=== PATIENT | male | born 1955 | race Caucasian/White ===

== ENCOUNTER 2016-05-10 07:36 | Emergency (ER) | payer BC ==
[~2016-05-10] VITALS: Ht 188 cm; Wt 121.6 kg
[2016-05-10] MEDS ORDERED: MORPHINE SULFATE INJ 2 MG/ML DISP.SYRIN ONE ×2 (07:56→09:36)
[2016-05-10] MEDS ORDERED: IV SET PRIMARY 1 EA INFUS.SET MC ONE (07:56)
[2016-05-10] MEDS ORDERED: IV NS 0.9% 1,000 ML ONE (07:56)
[2016-05-10] MEDS ORDERED: MORPHINE SULFATE INJ 4 MG/ML DISP.SYRIN ONE ×2 (07:56→09:36)
[2016-05-10] MEDS ORDERED: ONDANSETRON HCL/PF 4 MG/2 ML VIAL ONE (07:56)
[2016-05-10] MEDS ORDERED: IV NS 0.9% 1,000 ML BAG IV ONE (08:00)
[2016-05-10] MEDS ORDERED: ONDANSETRON HCL/PF 4 MG/2 ML VIAL IVP ONE (08:00)
[2016-05-10] MEDS ORDERED: MORPHINE SULFATE INJ 2 MG/ML DISP.SYRIN IV ONE ×2 (08:00→10:00)
[2016-05-10] MEDS ORDERED: HYDR-552 PO (08:03)
[2016-05-10] MEDS ORDERED: TRAM50TA2 PO (08:03)
[2016-05-10] MEDS ORDERED: LEVE500T6 PO (08:03)
[2016-05-10] MEDS ORDERED: OXYC5CAP3 PO (08:03)
[2016-05-10 08:20] LABS: BASOPHILS % (AUTO) 0.2 % (0.0-2.0); DIFF TOTAL % 100 %; EOSINOPHILS # (AUTO) 0.3 /CMM (0.0-0.7); EOSINOPHILS % (AUTO) 2.7 % (0.0-6.0); HEMATOCRIT 45 % (39-51); HEMOGLOBIN 14.9 g/dL (13.5-17.5); MEAN CORPUSCULAR HEMOGLOBIN 28 PG (26.0-33.0); MEAN CORPUSCULAR HGB CONC 34 g/dl (31.0-36.0); MEAN CORPUSCULAR VOLUME 84 fL (80-96); MONOCYTES # (AUTO) 0.6 /CMM (0.1-1.30); MONOCYTES % (AUTO) 4.9 % (2.0-12.0); NEUTROPHILS # (AUTO) 8.7 /CMM (1.8-8.9); NEUTROPHILS % (AUTO) 75.2 % (43.0-81.0); PLATELET COUNT (AUTO) 218 /CMM (150-450); RED BLOOD CELL COUNT(AUTO) 5.31 MIL/uL (4.5-6.0); WHITE BLOOD COUNT (AUTO) 11.6 K/uL (4.3-11.0)
[2016-05-10 08:28] LABS: CALCIUM, SERUM 7.9 mg/dL (8.5-10.1); CREATININE 1.2 mg/dL (0.6-1.3); POTASSIUM 2.9 mmol/L (3.5-5.1)
[2016-05-10] MEDS ORDERED: POTASSIUM CHLORIDE 20 MEQ TAB.PRT.SR PO ONE ×2 (08:49→09:00)
[2016-05-10] MEDS ORDERED: IV SET PRIMARY PUMP SET 1 EA INFUS.SET MC ONE (09:21)
[2016-05-10] MEDS ORDERED: POTASSIUM CL. PREMIX PERIPHER. 50 ML ONE (09:21)
[2016-05-10] MEDS ORDERED: IV NS 0.9% 500 ML IV ONE (09:21)
[2016-05-10] MEDS ORDERED: POTASSIUM CL. PREMIX PERIPHER. 50 ML IV SCH (09:30)
[2016-05-10] MEDS ORDERED: KETOROLAC TROMETHAMINE INJ 30 MG/ML VIAL ONE (09:55)
[2016-05-10] MEDS ORDERED: KETOROLAC TROMETHAMINE INJ 30 MG/ML VIAL IV ONE (10:00)
[2016-05-10 10:17] VITALS: BP 140/79
== END 2016-05-10 10:18 | disposition home or self-care (01) ==
LOC: ER 07:37
DX: S32.009A Unspecified fracture of unspecified lumbar vertebra, initial encounter for closed fracture (principal); E87.6 Hypokalemia; R51 Headache; Z88.0 Allergy status to penicillin; W10.8XXA Fall (on) (from) other stairs and steps, initial encounter; Y93.89 Activity, other specified; Y92.89 Other specified places as the place of occurrence of the external cause; Y99.9 Unspecified external cause status
CPT/HCPCS: 36415; 70450-TC; 71010-TC; 72125-TC; 72128-TC; 72170-TC; 80048-TC; 83735-TC; 85025-TC; A4606; J1885; J2270; J2405; J3480; J7030; J7040; Z7610